=== PATIENT | female | born 1970 | race Caucasian/White ===

== ENCOUNTER → 2023-10-16 13:41 | Outpatient (REF) | payer BC, SELFPAY | LOC: RAD 13:41 | PROVIDERS: ATTENDING PHYSICIAN Emergency Medicine | DX: M54.2 Cervicalgia (principal); R20.2 Paresthesia of skin; S09.90XA Unspecified injury of head, initial encounter | CPT/HCPCS: 72052 ==

== ENCOUNTER → 2023-11-13 07:46 | Outpatient (REF) | payer BC, SELFPAY | LOC: PAVMRI 07:46 | PROVIDERS: ATTENDING PHYSICIAN Emergency Medicine | DX: M54.2 Cervicalgia (principal); R20.2 Paresthesia of skin; S09.90XA Unspecified injury of head, initial encounter | CPT/HCPCS: 72156; A9575 ==